=== PATIENT | female | born 1965 ===

== ENCOUNTER 2016-12-27 23:42 | Emergency (ER) | payer BC ==
[2016-12-28 00:16] VITALS: TEMP 97.8
--- NOTE | 2016-12-28 01:07 | ED PDOC ---
HPI: Chest Pain Time Seen by Provider: 12/28/16 00:10 Chief Complaint (Nursing): Chest Pain Chief Complaint (Provider): Chest Pain History Per: Patient History/Exam Limitations: no limitations Onset/Duration Of Symptoms: Hrs (2 hours ago) Current Symptoms Are (Timing): Still Present Additional Complaint(s): Patient is a 51 y/o female with a past surgical history of 2 Caesarean Sections , presents to the ED complaining of chest pain, with an onset of 2 hours. In an attempt to alleviate the chest pain, the patient took 2 baby aspirin and began to feel better for a brief period. Of note, patient states that she vomited once , but denies of any past medical history, fever, and shortness of breath. pt states has history of gastritis and this pain is similar since it started right after food. currently symptoms abated. Past Medical History Reviewed: Historical Data, Nursing Documentation, Vital Signs Vital Signs: Last Vital Signs Temp 97.8 F 12/28/16 00:11 Pulse 83 12/28/16 04:25 Resp 16 12/28/16 04:25 BP 106/73 12/28/16 04:25 Pulse Ox 98 12/28/16 04:25 - Medical History PMH: No Chronic Diseases - Surgical History Surgical History: (2 c-sections) - Family History Family History: States: Unknown Family Hx - Living Arrangements Living Arrangements: With Family - Allergies Allergies/Adverse Reactions: Allergies Allergy/AdvReac Type Severity Reaction Status Date / Time No Known Allergies Allergy Verified 12/28/16 00:16 Review of Systems ROS Statement: Except As Marked, All Systems Reviewed And Found Negative Constitutional: Negative for: Fever Cardiovascular: Positive for: Chest Pain Respiratory: Negative for: Shortness of Breath Gastrointestinal: Positive for: Vomiting (vomited once) Physical Exam - Reviewed Nursing Documentation Reviewed: Yes Vital Signs Reviewed: Yes - Physical Exam Appears: Positive for: Non-toxic, No Acute Distress Head Exam: Positive for: ATRAUMATIC, NORMOCEPHALIC Skin: Positive for: Normal Color, Warm, Dry Eye Exam: Positive for: Normal appearance, EOMI, PERRL Neck: Positive for: Normal, Painless ROM, Supple Cardiovascular/Chest: Positive for: Regular Rate, Rhythm Respiratory: Positive for: Normal Breath Sounds Gastrointestinal/Abdominal: Positive for: Normal Exam, Soft. Negative for: Tenderness Back: Positive for: Normal Inspection Extremity: Positive for: Normal ROM. Negative for: Pedal Edema Neurologic/Psych: Positive for: Alert, Oriented. Negative for: Motor/Sensory Deficits - Laboratory Results Result Diagrams: 12/28/16 01:06 12/28/16 01:06 - ECG ECG: Positive for: Interpreted By Me, Viewed By Me ECG Rhythm: Positive for: Sinus Rhythm (Normal) Rate: 69 O2 Sat by Pulse Oximetry: 100 (RA) Pulse Ox Interpretation: Normal Medical Decision Making Medical Decision Making: Time: 00:48 Impression: Chest Pain Plan: --EKG --Labs --Troponin I Reassess: Time: 04:10 Patient is feeling better and the both Troponin labs came back negative to rule out Myocardial Infarction. Patient to be discharged home. Scribe Attestation: Documented by Naveen Rueda, acting as a scribe for Mary Schwartz MD. Provider Scribe Attestation: All medical record entries made by the Scribe were at my direction and personally dictated by me. I have reviewed the chart and agree that the record accurately reflects my personal performance of the history, physical exam, medical decision making, and the department course for this patient. I have also personally directed, reviewed, and agree with the discharge instructions and disposition. Disposition - Clinical Impression Clinical Impression: Chest pain, Gastritis Counseled Patient/Family Regarding: Studies Performed, Diagnosis, Need For Followup - Disposition Disposition: Routine/Home Disposition Time: 04:00 Condition: IMPROVED Additional Instructions: follow up with your primary doctor in 1-2 days return to the ED with any worsening or concerning symptoms Instructions: Gastritis (ED) Forms: [employer] ([place]ian)
[2016-12-28 01:14] LABS: BASO # 0.1 K/uL (0.0-0.2); BASO % 0.7 % (0.0-2.0); EOS # 0.2 K/uL (0.0-0.7); EOS % 2.2 % (0.0-4.0); HEMATOCRIT 36.8 % (34.0-47.0); LYMPH # 2.7 K/uL (1.0-4.3); LYMPH % 31.6 % (20.0-40.0); MEAN CELL VOLUME 79.4 fl (81.0-99.0); MEAN CORPUSCULAR HEMOGLOBIN 25.4 pg (27.0-31.0); MEAN PLATELET VOLUME 9.2 fl (7.2-11.7); MONO # 0.6 K/uL (0.0-0.8); MONO % 6.7 % (0.0-10.0); NEUT % 58.8 % (50.0-75.0); NRBC % 0.1 % (0.0-0.0); RED CELL DISTRIBUTION WIDTH 14.8 % (11.5-14.5); WHITE BLOOD COUNT 8.4 K/uL (4.8-10.8)
[2016-12-28 01:27] LABS: ALB/GLOB RATIO 1.2 (1.0-2.1); ALKALINE PHOSPHATASE 89 U/L (38-126); ALT/SGPT 32 U/L (9-52); AST/SGOT 31 U/L (14-36); BILIRUBIN,TOTAL 0.2 mg/dl (0.2-1.3); BLOOD UREA NITROGEN 25 mg/dl (7-17); CALCIUM 8.7 mg/dL (8.4-10.2); CARBON DIOXIDE 27 mmol/L (22-30); CHLORIDE 107 mmol/L (98-107); GFR AFRICAN-AMERICAN > 60; GLUCOSE,RANDOM 125 mg/dL (65-105); POTASSIUM 3.8 MMOL/L (3.6-5.0); SODIUM 144 mmol/l (132-148); TOTAL PROTEIN 7.7 G/DL (6.3-8.2)
[2016-12-28 04:26] VITALS: BP 106/73; RESP 16
--- NOTE | 2016-12-28 08:22 | CARD ---
APPROVED REPORT EKG Measurement Heart [id number] <Conclusion> Normal sinus rhythm Normal ECG
[2016-12-29 03:44] VITALS: PULSE 69; O2SAT 100
== END 2016-12-28 04:25 | disposition home or self-care (01) ==
LOC: H.ER 23:42
DX: R07.89 Other chest pain (principal); K29.70 Gastritis, unspecified, without bleeding